=== PATIENT | male | born 1970 | race African-American/Black ===

== ENCOUNTER 2021-08-17 10:08 | Outpatient (CLI) | payer BC ==
[~2021-08-17 10:08] MED LIST: Iopamidol 300 61% 100 ML VIAL FS ONE
== END 2021-08-17 10:09 | disposition home or self-care (01) ==
LOC: CSHCT 10:08
PROVIDERS: ATTEND Family Medicine
DX: R10.84 Generalized abdominal pain (principal); K63.89 Other specified diseases of intestine
CPT/HCPCS: 74177

== ENCOUNTER 2021-10-20 10:33 | Emergency (ER) | payer BC ==
[2021-10-20] MEDS ORDERED: Morphine 4 MG/ML VIAL ONE (11:46)
[2021-10-20] MEDS ORDERED: Ondansetron PF 4 MG/2 ML Vial ONE ×2 (11:46→14:22)
[2021-10-20 11:49] LABS: #Basophils 0.1 10x3/uL (0.0-0.2); #Eosinphils 0.1 10x3/uL (0.0-0.5); #Monocytes 0.9 10x3/uL (0.0-1.1); #Neutrophils 5.2 10x3/uL (1.5-8.4); %Basophils 0.5 % (0.0-2.0); %Eosinophils 1.3 % (0.0-6.0); %Lymphocytes 37.8 % (18.0-47.0); %Monocytes 8.6 % (0.0-10.0); %Neutrophils 51.3 % (40.0-75.0); Hemoglobin 14.3 g/dL (13.5-17.5); Mean Corpuscular HGB CONC 34.5 g/dL (32.0-36.0); Mean Corpuscular Hemoglobin 31.2 pg (27.0-33.0); Mean Corpuscular Volume 90.2 fl (81.2-95.1); Mean Platelet Volume 10.2 fl (7.4-10.4); Platelet Count 255 10x3/uL (150-450); RBC Distribution Width 13.9 % (11.5-14.5); Red Blood Cell (RBC) Count 4.59 10x6/uL (4.32-5.72); White Blood Cell (WBC) Count 10.1 10x3/uL (3.5-10.5)
[2021-10-20 12:01] LABS: ALT (SGPT) 22 U/L (8-55); AST (SGOT) 18 U/L (5-34); Albumin 4.3 g/dL (3.5-5.0); Alkaline Phosphatase 102 U/L (40-110); Anion Gap 16 mmol/L (10-20); BUN (Urea Nitrogen) 14 mg/dL (8.9-20.6); Bilirubin, Total 0.4 mg/dL (0.2-1.2); Calc. Creatinine Clearance 0 mL/min (70-130); Calcium 9.3 mg/dL (7.8-10.44); Carbon Dioxide 21 mmol/L (22-29); Chloride 104 mmol/L (98-107); Estimated GFR 88; Globulin 3.3 g/dL (2.4-3.5); Glucose 99 mg/dL (70-105); Lipase 20 U/L (8-78); Potassium 4.4 mmol/L (3.5-5.1); Protein, Total 7.6 g/dL (6.0-8.3); Sodium 137 mmol/L (136-145)
[2021-10-20] MEDS ORDERED: Piperacillin/Tazobactam 4.5 GM VIAL ONE (13:12)
[2021-10-20 13:36] LABS: SARS-CoV-2 NAA Rapid Test Not Detected (NotDetected)
[2021-10-20] MEDS ORDERED: Fentanyl 100 MCG/2 ML VIAL ONE ×3 (14:22→16:22)
[2021-10-20] MEDS ORDERED: PROPOFOL 20 ML ONE (14:22)
[2021-10-20] MEDS ORDERED: Lidocaine 1% PF 5 ML VIAL ONE (14:22)
[2021-10-20] MEDS ORDERED: Ketorolac Tromethamine 30 MG/ML VIAL ONE (14:22)
[2021-10-20] MEDS ORDERED: Dexamethasone 4 mg/ml Vial ONE (14:22)
[2021-10-20] MEDS ORDERED: Vecuronium 10 MG VIAL ONE (14:23)
[2021-10-20] MEDS ORDERED: Water For Injection,Sterile 20 ML ONE (14:23)
[2021-10-20] MEDS ORDERED: EPINEPHrine 1 MG/ML AMP ONE (14:24)
[2021-10-20] MEDS ORDERED: Bupivacaine PF 0.5% 30 ML VIAL ONE (14:24)
[2021-10-20] MEDS ORDERED: Succinylcholine 200 MG/10 ml SYRINGE FS ONE (14:26)
[2021-10-20] MEDS ORDERED: Glycopyrrolate 0.2 MG/ML 5 ML SYRINGE ONE (15:45)
[2021-10-20] MEDS ORDERED: HYDROcodone/Acetaminophen 5/325 mg Tablet PO PRN (16:03)
[2021-10-20] MEDS ORDERED: Acetaminophen 325 MG TAB PO PRN (16:03)
== END 2021-10-20 17:45 | disposition home or self-care (01) ==
LOC: CSHERS 10:33
PROC: 0DTJ4ZZ Resection of Appendix, Percutaneous Endoscopic Approach (ICD-10-PCS; principal; 2021-10-20)
DX: K35.80 Unspecified acute appendicitis (principal); Z20.822 Contact with and (suspected) exposure to COVID-19
CPT/HCPCS: 74177; 80053; 83690; 85025; 88304; 96365; 96375; A4649; C1776; J0171; J1100; J1885; J2270; J2405; J2543; J2704; J3010; S0020; U0002